=== PATIENT | male | born 1965 | race Caucasian/White ===

== ENCOUNTER 2016-09-19 | Observation (INO) ==
[2016-09-19] MEDS ORDERED: *HR* Promethazine 25 MG/ML VIAL IVP PRN ×2 (00:26→07:04)
--- NOTE | 2016-09-19 00:30 | Emergency Department Note ---
Disposition Clinical Impression: Seizure disorder Intractable vomiting Qualifiers: Vomiting type: unspecified Nausea presence: with nausea Qualified Code(s): R11.2 - Nausea with vomiting, unspecified Disposition: Admitted As Inpatient Condition: Good Referrals: NO,PCP [Primary Care Provider] - Forms: Work/School Release, ED Satisfaction Letter Time of Disposition: 05:20 Nausea/Vomiting/Diarrhea HPI - General Chief complaint: ED General Medical Stated complaint: sick, throwin up Time Seen by Provider: 09/19/16 00:25 Source: patient Mode of arrival: ambulatory Limitations: no limitations Nursing Notes Reviewed: Yes Vital Signs Reviewed: Yes - History of Present Illness HPI Narrative: 50-year-old white male with four-day history of intermittent vomiting. He was seen here yesterday morning by me. He had vomited 4-5 times. He was violated treated and discharged. After going home he is taken 1 dose of Zofran and he vomited again came back. No abdominal pain. No diarrhea. Pt Subjective Complaint: nausea, vomiting Onset (ago): day(s) Description of emesis: food contents (4) Associated Abdominal Pain: No Severity: none Severity scale (1-10): 0 Associated symptoms: Reports: denies other symptoms - Related Data Home Medications Medication Instructions Recorded Confirmed Aspirin 81 mg PO DAILY 06/07/16 09/18/16 Gabapentin [Neurontin] 1,200 mg PO TID 06/07/16 09/18/16 GlipiZIDE [Glucotrol] 5 mg PO TID 06/07/16 09/18/16 Lisinopril [Zestril] 10 mg PO DAILY 06/07/16 09/18/16 Loratadine [Allergy Relief] 10 mg PO DAILY 06/07/16 09/18/16 Metoprolol [Lopressor] 50 mg PO BID 06/07/16 09/18/16 Ferrous Sulfate [Iron] 325 mg PO DAILY 07/17/16 09/18/16 Insulin ASPART [NovoLOG] 8 unit SQ TID 07/17/16 09/18/16 Omeprazole [PriLOSEC] 20 mg PO DAILY 07/17/16 09/18/16 Pravastatin Sodium 10 mg PO DAILY 07/17/16 09/18/16 Sitagliptin Phos/Metformin HCl 1 each PO BID 09/18/16 09/18/16 [Janumet 50-1,000 mg Tablet] Previous Rx's Medication Instructions Recorded Ondansetron ODT [Zofran ODT] 4 mg SL Q4HR PRN #12 tab.rapdis 09/18/16 Allergies Allergy/AdvReac Type Severity Reaction Status Date / Time No Known Allergies Allergy Verified 07/17/16 11:50 All systems ED: reviewed and negative except as stated. Constitutional: Denies: fever, chills Cardiovascular: Denies: chest pain Respiratory: Denies: cough, dyspnea Gastrointestinal: Reports: nausea, vomiting. Denies: abdominal pain, diarrhea Genitourinary: Denies: urgency, dysuria, frequency Musculoskeletal: Denies: back pain Past Medical History - Past Medical History Medical history: Reports: diabetes, hyperlipidemia, hypertension, other Surgical history: Reports: herniorrhaphy, other Psychiatric history: Reports: no psych history - Social History Smoking Status: Never smoker Smokeless Tobacco Status: No Alcohol use: Reports: none Drug use: Reports: none Physical Exam - General Limitations: no limitations General appearance: alert, in no apparent distress - Head Head exam: atraumatic, normocephalic - Eye Eye exam: Present: PERRL, EOMI. Absent: scleral icterus, conjunctival injection - ENT ENT exam: normal oropharynx, mucous membranes moist - Neck Neck exam: Present: normal inspection, full ROM, trachea midline. Absent: lymphadenopathy - Respiratory Respiratory exam: Present: normal lung sounds bilaterally. Absent: respiratory distress, wheezes - Cardiovascular Cardiovascular exam: Present: regular rate, normal rhythm, normal heart sounds - Abdominal Exam Abdominal exam: Present: soft, Non-Tender, normal bowel sounds. Absent: organomegaly, mass - Extremities Exam Extremities exam: Present: normal inspection, full ROM, normal capillary refill - Back Exam Back exam: Absent: CVA tenderness (R), CVA tenderness (L) - Neurological Exam Neurological exam: Present: alert, oriented X3 - Psychiatric Psychiatric exam: Present: normal affect, normal mood - Skin Skin exam: Present: warm, dry, intact Course - Reevaluation(s) Reevaluation #1: Patient had a witnessed grand mal seizure. He was given 2 mg of Ativan. Time: 01:15 Reevaluation #2: Awake alert, oriented. No further seizures. Continued nausea, taking ice chips. His repeat labs are significantly improved. Time: 05:18 Reevaluation #3: Discussed with Dr. Prather. He will admit. Time: 05:20 Vital Signs Temperature 97.7 F 09/19/16 00:01 Pulse Rate 87 09/19/16 00:01 Respiratory Rate 16 09/19/16 00:01 Blood Pressure 159/91 09/19/16 00:01 O2 Sat by Pulse Oximetry 98 09/19/16 00:01 Temperature 98.9 F 09/19/16 02:56 Pulse Rate 97 09/19/16 04:24 Respiratory Rate 18 09/19/16 04:24 Blood Pressure 119/81 09/19/16 04:24 O2 Sat by Pulse Oximetry 97 09/19/16 04:24 Oxygen Delivery Oxygen Delivery Room Air Nausea/Vomiting/Diarrhea - MDM Narrative Medical decision making narrative: Differential includes but is not limited to gastritis, viral gastritis, gastroparesis, peptic ulcer disease, pancreatitis, biliary tract disease. I think this is likely a viral gastroenteritis with intractable vomiting. I do not think this is DKA. He has a history of seizures, and had an episode here that was a grand mal seizure. I did give him some Ativan. This is his second visit in 24 hours. I am going to put him in an observation bed. I spoke with Dr. Prahter. He is agreeable. - Lab Data Result diagrams: 09/19/16 01:25 09/19/16 04:30 Lab Results 09/19/16 09/19/16 09/19/16 Range/Units 01:25 01:25 01:25 WBC 13.6 H D (4.3-11.1) K/mcL RBC 4.85 (4.19-5.50) M/mcL Hgb 12.1 L (12.9-16.9) g/dL Hct 40.8 (37.5-50.1) % MCV 84.1 (83.0-100.0) fL MCH 24.9 L (28.0-33.3) pg MCHC 29.7 L (31.6-35.5) g/dL RDW 15.8 H (11.5-14.5) % Plt Count 428 H (140-400) K/mcL MPV 9.3 L (9.4-12.4) fL Immature Gran % 1.1 (0-4) % Seg Neutrophils % 72.9 % Lymphocytes % 20.1 % Monocytes % 5.0 % Eosinophils % 0.7 % Basophils % 0.2 % Neutrophils # 9.9 H (1.6-8.9) K/mcL Lymphocytes # 2.7 (0.6-4.6) K/mcL Monocytes # 0.7 (0.0-1.3) K/mcL Eosinophils # 0.1 (0.0-0.6) K/mcL Basophils # 0.0 (0.0-0.2) K/mcL VBG pH 7.08 L* (7.32-7.42) pH Units VBG pCO2 34.7 L (41-51) mmHg VBG pO2 96.2 H (25-40) mmHg VBG HCO3 10.2 L (21-27) mEq/L Sodium 140 (136-145) mEq/L Potassium 3.6 (3.5-4.5) mEq/L Chloride 106 (98-109) mEq/L Carbon Dioxide 8 L* D (19-29) mEq/L BUN 17 (8-26) mg/dL Creatinine 1.14 (0.72-1.25) mg/dL Est GFR ( Amer) > 60 (> 60) Est GFR (Non-Af Amer) > 60 (> 60) BUN/Creatinine Ratio 15 (6-26) Glucose 252 H (70-99) mg/dL Calculated Osmolality 300 (280-300) Calcium 8.7 (8.6-10.8) mg/dL Total Bilirubin 0.3 (0.2-1.2) mg/dL AST 18 (5-34) Units/L ALT 21 (0-55) Units/L Alkaline Phosphatase 80 (38-126) Units/L Serum Total Protein 7.2 (6.0-8.3) g/dL Albumin 3.8 (3.5-5.0) g/dL Globulin 3.4 (2.4-3.5) g/dL Albumin/Globulin Ratio 1.1 (1.1-2.2) Beta-Hydroxybutyric Acd 1.09 H (0.02-0.27) mmol/L 09/19/16 09/19/16 Range/Units 04:30 04:30 WBC (4.3-11.1) K/mcL RBC (4.19-5.50) M/mcL Hgb (12.9-16.9) g/dL Hct (37.5-50.1) % MCV (83.0-100.0) fL MCH (28.0-33.3) pg MCHC (31.6-35.5) g/dL RDW (11.5-14.5) % Plt Count (140-400) K/mcL MPV (9.4-12.4) fL Immature Gran % (0-4) % Seg Neutrophils % % Lymphocytes % % Monocytes % % Eosinophils % % Basophils % % Neutrophils # (1.6-8.9) K/mcL Lymphocytes # (0.6-4.6) K/mcL Monocytes # (0.0-1.3) K/mcL Eosinophils # (0.0-0.6) K/mcL Basophils # (0.0-0.2) K/mcL VBG pH 7.40 D (7.32-7.42) pH Units VBG pCO2 32.1 L (41-51) mmHg VBG pO2 59.1 H (25-40) mmHg VBG HCO3 20.0 L (21-27) mEq/L Sodium 137 (136-145) mEq/L Potassium 4.2 (3.5-4.5) mEq/L Chloride 109 (98-109) mEq/L Carbon Dioxide 17 L (19-29) mEq/L BUN 14 (8-26) mg/dL Creatinine 0.84 (0.72-1.25) mg/dL Est GFR ( Amer) > 60 (> 60) Est GFR (Non-Af Amer) > 60 (> 60) BUN/Creatinine Ratio 17 (6-26) Glucose 209 H (70-99) mg/dL Calculated Osmolality 291 (280-300) Calcium 8.3 L (8.6-10.8) mg/dL Total Bilirubin (0.2-1.2) mg/dL AST (5-34) Units/L ALT (0-55) Units/L Alkaline Phosphatase (38-126) Units/L Serum Total Protein (6.0-8.3) g/dL Albumin (3.5-5.0) g/dL Globulin (2.4-3.5) g/dL Albumin/Globulin Ratio (1.1-2.2) Beta-Hydroxybutyric Acd (0.02-0.27) mmol/L
[2016-09-19] MEDS: 0.9 % Sodium Chloride 1,000 ML IVC SCH ×3 (00:41→03:01)
[2016-09-19] MEDS ORDERED: *HR* LORazepam 2 MG/ML VIAL ONE (01:07)
[2016-09-19 01:40] LABS: Basophils % 0.2 %; Eosinophils # 0.1 K/mcL (0.0-0.6); Eosinophils % 0.7 %; Hematocrit 40.8 % (37.5-50.1); Hemoglobin 12.1 g/dL (12.9-16.9); Immature Granulocytes % 1.1 % (0-4); Lymphocytes # 2.7 K/mcL (0.6-4.6); Lymphocytes % 20.1 %; Mean Corpuscular HGB Conc 29.7 g/dL (31.6-35.5); Mean Corpuscular Hemoglobin 24.9 pg (28.0-33.3); Mean Corpuscular Volume 84.1 fL (83.0-100.0); Mean Platelet Volume 9.3 fL (9.4-12.4); Monocytes # 0.7 K/mcL (0.0-1.3); Neutrophils # 9.9 K/mcL (1.6-8.9); Platelet Count 428 K/mcL (140-400); Red Blood Count 4.85 M/mcL (4.19-5.50); Red Cell Distribution Width 15.8 % (11.5-14.5); Segmented Neutrophils % 72.9 %
[2016-09-19 01:44] LABS: Beta-Hydroxybutyric Acid 1.09 mmol/L (0.02-0.27)
[2016-09-19 01:53] LABS: VBG PCO2 34.7 mmHg (41-51); VBG PH 7.08 pH Units (7.32-7.42); VBG PO2 96.2 mmHg (25-40)
[2016-09-19 01:54] LABS: VBG HCO3 10.2 mEq/L (21-27)
[2016-09-19 01:57] LABS: Alanine Aminotransferase 21 Units/L (0-55); Albumin 3.8 g/dL (3.5-5.0); Albumin/Globulin Ratio 1.1 (1.1-2.2); Alkaline Phosphatase 80 Units/L (38-126); Aspartate Amino Transferase 18 Units/L (5-34); BUN/Creatinine Ratio 15 (6-26); Bilirubin,Total 0.3 mg/dL (0.2-1.2); Blood Urea Nitrogen 17 mg/dL (8-26); Calcium 8.7 mg/dL (8.6-10.8); Chloride 106 mEq/L (98-109); Globulin 3.4 g/dL (2.4-3.5); Glucose 252 mg/dL (70-99); Osmolality,Calculated 300 (280-300); Potassium 3.6 mEq/L (3.5-4.5); Sodium 140 mEq/L (136-145); Total Protein 7.2 g/dL (6.0-8.3); eGFR For African Americans > 60 (> 60); eGFR For Non-African Americans > 60 (> 60)
[2016-09-19 02:00] LABS: Carbon Dioxide 8 mEq/L (19-29)
[2016-09-19] MEDS ORDERED: 0.9 % Sodium Chloride 1,000 ML IVC ONE ×2 (02:04→07:04)
[2016-09-19] MEDS ORDERED: *HR* LORazepam 2 MG/ML VIAL IVP STA (02:23)
[2016-09-19] MEDS ORDERED: Mag Hydrox/Al Hydrox/Simeth 30 ML UDC PO STA (03:44)
[2016-09-19 04:36] LABS: VBG PH 7.4 pH Units (7.32-7.42)
[2016-09-19 04:37] LABS: VBG PCO2 32.1 mmHg (41-51); VBG PO2 59.1 mmHg (25-40)
[2016-09-19 04:54] LABS: BUN/Creatinine Ratio 17 (6-26); Blood Urea Nitrogen 14 mg/dL (8-26); Calcium 8.3 mg/dL (8.6-10.8); Carbon Dioxide 17 mEq/L (19-29); Chloride 109 mEq/L (98-109); Glucose 209 mg/dL (70-99); Osmolality,Calculated 291 (280-300); Potassium 4.2 mEq/L (3.5-4.5); Sodium 137 mEq/L (136-145); eGFR For African Americans > 60 (> 60); eGFR For Non-African Americans > 60 (> 60)
[2016-09-19] MEDS ORDERED: Acetaminophen 325 MG TABLET PO PRN (07:04)
[2016-09-19] MEDS ORDERED: *HR* LORazepam 2 MG/ML VIAL IVP ONE (07:04)
[2016-09-19] MEDS ORDERED: Ondansetron 4 MG/2 ML VIAL IVP PRN (07:04)
[2016-09-19] MEDS ORDERED: Naloxone 0.4 MG/ML INJ IVP PRN (07:04)
[2016-09-19] MEDS ORDERED: Ondansetron ODT 4 MG TAB.RAPDIS SL PRN (07:04)
[2016-09-19] MEDS ORDERED: 0.9 % Sodium Chloride 1,000 ML IVC SCH ×2 (07:04)
[2016-09-19] MEDS ORDERED: *HR* LORazepam 2 MG/ML VIAL IVP PRN (07:45)
[2016-09-19] MEDS: *HR* SitaGLIPtin 25 MG TABLET PO SCH ×2 (08:43→17:26)
[2016-09-19] MEDS: *HR* LORazepam 1 MG TABLET PO SCH ×3 (08:50→21:49)
[2016-09-19] MEDS: *HR* Metformin 500 MG TABLET PO SCH ×2 (08:50→17:29)
[2016-09-19] MEDS: Gabapentin 400 MG CAPSULE PO SCH ×3 (08:51→21:47)
[2016-09-19] MEDS ORDERED: Loratadine 10 MG TABLET PO SCH (09:00)
[2016-09-19] MEDS ORDERED: Aspirin 81 MG TAB.CHEW PO SCH (09:00)
[2016-09-19] MEDS: *HR* GlipiZIDE 5 MG TABLET PO SCH ×3 (09:13→17:29)
[2016-09-19] MEDS: Famotidine 20 MG/2 ML VIAL IVP SCH ×2 (09:13→17:29)
--- NOTE | 2016-09-19 15:37 | Internal Med History&Physical ---
Date of Encounter: 09/19/16 Time of Encounter: 14:40 Assessment and Plan (1) Intractable vomiting Current visit: Yes Status: Acute He has been given IV fluids and anti-emetics. Further workup will be done as needed. Qualifiers: Vomiting type: unspecified Nausea presence: with nausea Qualified Code(s) : R11.2 - Nausea with vomiting, unspecified (2) DM type 2 (diabetes mellitus, type 2) Current visit: Yes Status: Chronic Hemoglobin A1c will be checked. He will continue sitagliptin metformin and glipizide at home doses. Accu-Cheks with SSI will be done. Qualifiers: Diabetes mellitus complication status: with neurologic complications Diabetes mellitus complication detail: with polyneuropathy Diabetes mellitus intermission coordinator insulin use: with intermission coordinator use Qualified Code(s): E11.42 - Type 2 diabetes mellitus with diabetic polyneuropathy; Z79.4 - oil heaterman (current) use of insulin (3) Hypertension Current visit: Yes Status: Chronic Continue Zestril and Lopressor. Qualifiers: Hypertension type: essential hypertension Qualified Code(s): I10 - Essential (primary) hypertension (4) Seizure Current visit: Yes Status: Acute Will hold tramadol and Phenergan. (5) Anemia Current visit: Yes Status: Acute We will order anemia testing in a.m. June 2016 workup showed probable iron deficiency anemia. Qualifiers: Anemia type: iron deficiency Iron deficiency anemia type: unspecified iron deficiency Qualified Code(s): D50.9 - Iron deficiency anemia, unspecified Internal Medicine - H&P: HPI Chief complaint: Vomiting Admitted From: Home Plans for Post Hospital Care: Home History of present illness: Mr. Smith is a 50 year old male who came to emergency room stating he had onset of nausea the evening of September 15. He took Aleve with minimal improvement. He continued to feel nauseated over the next 2 days and had very little oral intake. On September 18 he had 4-5 episodes of vomiting at home. He denies hematemesis. He came to emergency room and was treated and discharged. He vomited again upon return home so came back to emergency room. He was admitted to [facility] for ongoing care needs. He denies significant abdominal pain. He reports having dry heaves since being admitted to [facility] floor. His GI history is pertinent for GERD but he denies disorders of his liver gallbladder or exocrine pancreas. He states his stool shape has changed slightly in the last few months. He had a normal esophageal motility study on 08/20/2016. He had an EGD and colonoscopy July 2016 but I do not see the reports in the available records. Past Med Surg Social Fam HX - Past Medical History Medical history: diabetes, hyperlipidemia, hypertension, other Psychiatric history: no psych history - Past Surgical History Surgical History: herniorrhaphy, other - Social History Smoking Status: Never smoker Smokeless Tobacco Status: No Alcohol use: none Drug use: none Internal Medicine - H&P: Meds Aspirin 81 mg PO DAILY 06/07/16 [History] Gabapentin [Neurontin] 1,200 mg PO TID 06/07/16 [History] Lisinopril [Zestril] 10 mg PO DAILY 06/07/16 [History] Loratadine [Allergy Relief] 10 mg PO DAILY 06/07/16 [History] Metoprolol [Lopressor] 50 mg PO BID 06/07/16 [History] glipiZIDE [Glucotrol] 5 mg PO TID 06/07/16 [History] Ferrous Sulfate [Iron] 325 mg PO DAILY 07/17/16 [History] Insulin ASPART [NovoLOG] 8 unit SQ TID 07/17/16 [History] Omeprazole [PriLOSEC] 20 mg PO DAILY 07/17/16 [History] Pravastatin Sodium 10 mg PO DAILY 07/17/16 [History] Ondansetron ODT [Zofran ODT] 4 mg SL Q4HR PRN #12 tab.rapdis 09/18/16 [Rx] Sitagliptin Phos/Metformin HCl [Janumet 50-1,000 mg Tablet] 1 each PO BID [History] Allergies No Known Allergies Allergy (Verified 07/17/16 11:50) All Systems PM: A 10-system review of systems was performed and is negative for pertinent findings except as documented above in the HPI. Review of systems: Gen.: He states his weight has been stable the past few months Cardiovascular: He has history of hypertension but denies MO heart failure angina DVT or pulmonary embolus. Reports an exercise stress test was done over 10 years ago and was unremarkable. Respiratory: He is a lifelong nonsmoker denies chronic lung disease GI: As per history of present illness : He states he has kidney stones but has not passed stones. He denies other kidney bladder prostate disorders Neurologic: Had a seizure February 2016 and another seizure the morning of admission. He does not take seizure medication. He reports the seizures are due to DKA. He has diabetic peripheral neuropathy. He denies large distribution strokes. Endocrine: He has hyperlipidemia. He was diagnosed with DM 2 in 2004. He also had DKA February 2016. He denies thyroid disease. Hematology/oncology: He had anemia on labs in the emergency room. He denies other blood disorders or internal malignancies Psychiatric: He denies anxiety depression or other mental health issues Musk skeletal: He has spinal DJD. He denies other bone joint or muscle disorders. - Constitutional Vitals: Temp Pulse Resp BP Pulse Ox 98.9 F 74 16 121/66 95 09/19/16 11:14 09/19/16 11:14 09/19/16 11:14 09/19/16 11:14 09/19/16 11:14 Exam: Gen.: He is a well-developed well-nourished male who appears in mild distress at present time. He denies significant pain however. HEENT: Head is atraumatic and normal cephalic. Eyes: EOMI. There is no scleral icterus. Mouth: Mucosa is moist. Neck: Supple and nontender. There is no thyromegaly or adenopathy noted. Heart: Regular without murmurs gallops or ectopics. Rate is approximately 108/ m. Lungs: No wheezes or crackles are heard. Abdomen: Soft and nontender. No masses or guarding are noted. Extremities: There is no cyanosis edema or clubbing noted. Dorsalis pedis and posterior tibial pulses are 1-2 over 2 bilaterally. Neurologic: Mental status: He is talkative and a good historian. Cranial nerves : Smile is symmetric. Forehead wrinkles bilaterally. Tongue protrudes midline. EOMI. Motor: There is no pronator drift. Cerebellar: Finger to nose is intact bilaterally. Skin: Warm and dry. He has multiple tattoos. Internal Med - H&P Results - Labs CBC & Chem 7: 09/19/16 01:25 09/19/16 04:30
[2016-09-19] MEDS: Insulin LISPRO 300 UNITS/3 ML VIAL SQ SCH (17:26)
[2016-09-19] MEDS: 0.45 % Sodium Chloride w/KCl 20 MEQ/1,000 ML MLS IVC SCH (17:30)
[2016-09-19] MEDS: Baclofen 10 MG TABLET PO PRN (18:20)
[2016-09-19 18:21] LABS: Bilirubin,Urine Negative (Negative); Blood,Urine Negative (Negative); Clarity,Urine Clear (Clear); Color,Urine Yellow (Yellow); Glucose,Urine (UA) 100 mg/dL (Normal); Ketones,Urine 15 mg/dL (Negative); Leukocyte Esterase,Urine Negative (Negative); Nitrite,Urine Negative (Negative); PH,Urine 6.5 pH Units (5.0-8.0); Protein,Urine Negative (Neg-Trace); Urobilinogen,Urine Normal (Normal)
[2016-09-19 18:38] LABS: Amphetamine Screen,Urine Positive ng/mL (Cutoff=1000); Barbiturate Screen,Urine Negative ng/mL (Cutoff=200); Benzodiazepines Screen,Urine Negative ng/mL (Cutoff=200); Cannabinoid Screen,Urine Negative ng/mL (Cutoff = 50); Cocaine Screen,Urine Negative ng/mL (Cutoff= 300); Opiate Screen,Urine Negative ng/mL (Cutoff=300); Phencyclidine Screen,Urine Negative ng/mL (Cutoff=25)
[2016-09-20 06:10] LABS: Basophils % 0.5 %; Eosinophils # 0.1 K/mcL (0.0-0.6); Eosinophils % 2.2 %; Hematocrit 36.4 % (37.5-50.1); Hemoglobin 11.4 g/dL (12.9-16.9); Immature Granulocytes % 0.3 % (0-4); Lymphocytes # 1.1 K/mcL (0.6-4.6); Lymphocytes % 17.6 %; Mean Corpuscular HGB Conc 31.3 g/dL (31.6-35.5); Mean Corpuscular Hemoglobin 24.8 pg (28.0-33.3); Mean Corpuscular Volume 79.1 fL (83.0-100.0); Mean Platelet Volume 9.7 fL (9.4-12.4); Monocytes # 0.4 K/mcL (0.0-1.3); Monocytes % 6.3 %; Neutrophils # 4.6 K/mcL (1.6-8.9); Platelet Count 312 K/mcL (140-400); Red Cell Distribution Width 15.9 % (11.5-14.5); Segmented Neutrophils % 73.1 %
[2016-09-20] MEDS: Famotidine 20 MG/2 ML VIAL IVP SCH (06:47)
[2016-09-20] MEDS: 0.45 % Sodium Chloride w/KCl 20 MEQ/1,000 ML MLS IVC SCH (06:47)
[2016-09-20 06:59] LABS: Alanine Aminotransferase 17 Units/L (0-55); Albumin 3.3 g/dL (3.5-5.0); Albumin/Globulin Ratio 1.1 (1.1-2.2); Alkaline Phosphatase 67 Units/L (38-126); Aspartate Amino Transferase 18 Units/L (5-34); BUN/Creatinine Ratio 11 (6-26); Bilirubin,Total 0.2 mg/dL (0.2-1.2); Blood Urea Nitrogen 9 mg/dL (8-26); Calcium 8.9 mg/dL (8.6-10.8); Carbon Dioxide 21 mEq/L (19-29); Chloride 108 mEq/L (98-109); Globulin 2.9 g/dL (2.4-3.5); Glucose 200 mg/dL (70-99); Magnesium 2.2 mg/dL (1.6-2.6); Osmolality,Calculated 292 (280-300); Potassium 3.7 mEq/L (3.5-4.5); Sodium 139 mEq/L (136-145); Total Protein 6.2 g/dL (6.0-8.3); eGFR For African Americans > 60 (> 60); eGFR For Non-African Americans > 60 (> 60)
[2016-09-20] MEDS: *HR* GlipiZIDE 5 MG TABLET PO SCH ×2 (09:00→11:43)
[2016-09-20] MEDS: *HR* LORazepam 1 MG TABLET PO SCH (09:00)
[2016-09-20] MEDS: Gabapentin 400 MG CAPSULE PO SCH (09:00)
[2016-09-20] MEDS: *HR* Metformin 500 MG TABLET PO SCH (09:01)
[2016-09-20] MEDS: *HR* SitaGLIPtin 25 MG TABLET PO SCH (09:07)
[2016-09-20] MEDS: Baclofen 10 MG TABLET PO PRN (09:09)
[2016-09-20] MEDS: Insulin LISPRO 300 UNITS/3 ML VIAL SQ SCH ×2 (09:52→11:43)
[2016-09-20 14:33] LABS: % Iron Saturation 5 % (20-55); Iron 21 mcg/dL (65-175); Transferrin 284 mg/dL (174-364)
[2016-09-20 14:42] LABS: Ferritin 14 ng/ml (22-275)
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
[2016-09-20 14:48] VITALS: BP 161/94
== END 2016-09-20 15:30 | disposition home or self-care (01) ==
LOC: INPPIK → EMEROOPIK → INPPIK 06:14
PROVIDERS: ADMIT Internal Medicine; ATTEND Internal Medicine